=== PATIENT | female | born 1965 | race Caucasian/White ===

== ENCOUNTER 2022-04-05 15:53 | Emergency (ER) | payer BC ==
[~2022-04-05] VITALS: Ht 162.5 cm; Wt 72.6 kg
== END 2022-04-05 18:59 | disposition home or self-care (01) ==
LOC: ED 15:53
DX: M25.551 Pain in right hip (principal); F17.200 Nicotine dependence, unspecified, uncomplicated; W01.0XXA Fall on same level from slipping, tripping and stumbling without subsequent striking against object, initial encounter; Y93.89 Activity, other specified; Y92.89 Other specified places as the place of occurrence of the external cause; Y99.8 Other external cause status